=== PATIENT | male | born 1995 | race Caucasian/White ===

== ENCOUNTER 2017-12-11 19:50 | Emergency (ER) | payer OTHER ==
[2017-12-11] MEDS ORDERED: IBUPROFEN 600 MG TAB PO ONE (20:26)
[2017-12-11] MEDS ORDERED: OXYCODONE/APAP 5/325MG PREPACK#4 BTL TAKEHOME ONE (20:37)
--- NOTE | 2017-12-11 20:37 | EDPHY ---
General - History Smoking Status: Never smoked Time Seen by Provider: 12/11/17 20:03 Narrative: CHIEF COMPLAINT: Punched a wall, and pain HISTORY OF PRESENT ILLNESS: Patient presents with complaints of right hand pain after punching a wall 5 days ago. He has significant pain in the right hand over the 5th met carpal and into the base of the pinky. He says that he waited because he thought that this would improve. After 5 days and some [id number] medications he has no improvement, and is began to worsen. More swelling. No bruising. Unable to completely close his fist without significant pain. He has no numbness, tingling or weakness. He has no pain in the anatomic snuffbox of the right elbow. No laceration or puncture. He adamantly denies that this is a punch injury to any once mouth or teeth. No other associated complaints or modifying factors. DOMINANT EXTREMITY: Left hand dominant ESTABLISHED ORTHOPEDIST: None REVIEW OF SYSTEMS: Ten systems reviewed and are negative unless otherwise noted in the HPI PAST MEDICAL HISTORY: Uncomplicated PAST SURGICAL HISTORY: None SOCIAL HISTORY: Nonsmoker. [employer] student. FAMILY HISTORY: Noncontributory EXAMINATION General Appearance: Alert, no distress Cardiovascular: Symmetric radial pulses 2+. Brisk cap refill the fingers the right hand. Neurological: A&O, sensory symmetric in the radial, ulnar and median distributions. Two point sensory intact in the fingers of the right hand. No wrist drop. Interossei strength symmetric in both hands. Skin: Warm and dry, no rash. There is moderate ecchymosis but no laceration or puncture of the right hand. Extremities: Significant swelling and tenderness of the right hand over the 5th metacarpal. There is some slight radial deviation of the right 5th finger. Able to range his right wrist and fingers without difficulty but painfully so. The cascade of his right fingers does reveal very mild radial deviation of the pinky finger. There is no tenderness in the right snuffbox. Psychiatric: Mood and affect normal DIFFERENTIAL DIAGNOSES: Including but not limited to boxer's fracture, sprain, strain, hematoma, metacarpal fracture MDM: 8:05 p.m. Acute right 5th metacarpal fracture with angulation and rotation. He has a borderline cascade of the fingers. He has a delayed presentation. We will place him in a boxer's fracture ulnar gutter splint. I discussed the importance of hand follow-up as soon as possible given the delayed presentation in the possible indication of surgery. We discussed ice, elevation pain medication. We discussed ED precautions for numbness, tingling or weakness. He is comfortable this plan. He voices understanding of the need to see a hand surgeon, discharged home stable condition. SUPERVISION: This patient was independently evaluated without direct involvement of or examination by the attending physician. ED Precautions: Worsening pain. Erythema, edema, cyanosis, pallor, paresthesia or anesthesia. (Shaw N[place]) Discussion: The patient was evaluated and managed by the Physician Filling Technician. My co- signature indicates that I have reviewed this chart and I agree with the findings and plan of care as documented. I am the secondary supervising physician. (Arlene Duncan) - Objective Vital Signs: Initial Vital Signs Temperature (C) 97.5 F 12/11/17 19:53 Heart Rate 68 12/11/17 19:53 Respiratory Rate 16 12/11/17 19:53 Blood Pressure 125/94 H 12/11/17 19:53 O2 Sat (%) 96 12/11/17 19:53 O2 Delivery Mode Room Air Allergies/Adverse Reactions: amoxicillin Allergy (Verified 12/11/17 19:52) Home Medications: Medication Instructions Recorded Adderall 10 MG (*) 12/11/17 Medications Given: Discontinued Medications Ibuprofen (Motrin) 600 mg PO EDNOW ONE Stop: 12/11/17 20:27 Last Admin: 12/11/17 20:37 Dose: 600 mg Oxycodone/Acetaminophen (Percocet 5/325mg Prepack#4) 1 btl TAKEHOME EDNOW ONE Stop: 12/11/17 20:38 Last Admin: 12/11/17 20:52 Dose: 1 btl Departure - Departure Disposition: Home, Routine, Self-Care Clinical Impression: Boxers fracture Qualifiers: Encounter type: initial encounter Fracture type: closed Qualified Code(s): S62.339A - Displaced fracture of neck of unspecified metacarpal bone, initial encounter for closed fracture Condition: Good Instructions: Oxycodone/Acetaminophen (By mouth), Hand Fracture (ED), Boxer Fracture (ED) Additional Instructions: 1. Keep your splint in place at all times until seen by orthopedist 2. Contact the hand specialist tomorrow morning for definitive care 3. Ice and elevation often 4. Ibuprofen 400-600 mg every 6-8 hours Referrals: Cristiana Block MD [Medical Doctor] - As per Instructions
[2017-12-11 20:59] VITALS: BP 126/72
== END 2017-12-11 20:59 | disposition home or self-care (01) ==
DX: S62.336A Displaced fracture of neck of fifth metacarpal bone, right hand, initial encounter for closed fracture (principal); Y04.8XXA Assault by other bodily force, initial encounter
CPT/HCPCS: A4565